=== PATIENT | female | born 1990 ===

== ENCOUNTER 2021-10-18 17:04 | Emergency (ER) | payer SELFPAY ==
[2021-10-18 17:59] VITALS: BP 128/76; PULSE 87; RESP 16; TEMP 36.6; O2SAT 99
--- NOTE | 2021-10-18 19:17 | PC.NURSE ---
no answer at triage
== END 2021-10-18 19:26 | disposition left against medical advice (07) ==
LOC: ANHED 19:25
DX: M54.9 Dorsalgia, unspecified (principal)
CPT/HCPCS: 99199